=== PATIENT | female | born 1995 | race African-American/Black ===

== ENCOUNTER 2017-03-13 19:52 | Emergency (ER) | payer OTHER | END 2017-03-13 21:59 | disposition home or self-care (01) | LOC: ER 19:52 | DX: N39.0 Urinary tract infection, site not specified (principal); J45.909 Unspecified asthma, uncomplicated; F10.99 Alcohol use, unspecified with unspecified alcohol-induced disorder; Z91.040 Latex allergy status ==

== ENCOUNTER 2018-07-28 10:12 | Emergency (ER) | payer OTHER ==
[~2018-07-28] VITALS: Ht 177.8 cm; Wt 68.5 kg
[~2018-07-28 10:12] MED LIST: BACTRIM DS TAB1 EACH PO; CLEOCIN HCL150 MG PO; FLEXERIL PO; HIBICLENS120 ML TP; HYCET 7.5 MG-3473 ML PO; KEFLEX500 MG PO; MOBIC7.5 MG PO; NAPROSYN500 MG PO; NOHOMEMEDICATIONS; PREDNISONE 20 M20 MG PO; ZYRTEC10 M2 PO
[2018-07-28 10:13] VITALS: BP 129/68
[2018-07-28 10:30] LABS: URINE BILIRUBIN NEGATIVE (Negative); URINE BLOOD NEGATIVE (Negative); URINE CLARITY CLEAR; URINE COLOR YELLOW; URINE GLUCOSE-RANDOM* NEGATIVE (Negative); URINE KETONES NEGATIVE (Negative); URINE LEUKOCYTES-REFLEX NEGATIVE (Negative); URINE NITRITE-REFLEX NEGATIVE (Negative); URINE PROTEIN (DIPSTICK) NEGATIVE (Negative); URINE UROBILINOGEN 0.2 E.U./dl (0.2-1.0)
[2018-07-28] MEDS ORDERED: FLAGYL500 M1 PO (10:59)
== END 2018-07-28 11:08 | disposition home or self-care (01) ==
LOC: ER 10:12
PROVIDERS: Nurse Practitioner Family
DX: N76.0 Acute vaginitis (principal); J45.909 Unspecified asthma, uncomplicated; Z91.040 Latex allergy status

== ENCOUNTER 2018-08-02 17:09 | Emergency (ER) | payer OTHER ==
[~2018-08-02] VITALS: Ht 177.8 cm; Wt 68.5 kg
[~2018-08-02 17:09] MED LIST changes: +FLAGYL500 M1 PO
[2018-08-02 17:29] LABS: URINE BILIRUBIN NEGATIVE (Negative); URINE BLOOD NEGATIVE (Negative); URINE CLARITY CLEAR; URINE COLOR YELLOW; URINE GLUCOSE-RANDOM* NEGATIVE (Negative); URINE KETONES NEGATIVE (Negative); URINE LEUKOCYTES-REFLEX TRACE (Negative); URINE NITRITE-REFLEX NEGATIVE (Negative); URINE PROTEIN (DIPSTICK) NEGATIVE (Negative); URINE SPECIFIC GRAVITY 1.025 (1.005-1.035); URINE UROBILINOGEN 0.2 E.U./dl (0.2-1.0)
[2018-08-02] MEDS ORDERED: DIFLUCAN200 MG PO (18:11)
[2018-08-02 18:36] VITALS: BP 127/81
== END 2018-08-02 18:36 | disposition home or self-care (01) ==
LOC: ER 17:09
PROVIDERS: Physician Assistant
DX: B37.3 Candidiasis of vulva and vagina (principal); N89.8 Other specified noninflammatory disorders of vagina; J45.909 Unspecified asthma, uncomplicated; Z91.040 Latex allergy status

== ENCOUNTER 2018-11-06 17:19 | Emergency (ER) | payer OTHER ==
[~2018-11-06] VITALS: Ht 177.8 cm; Wt 68.0 kg
[2018-11-06 17:19] VITALS: BP 110/66
[~2018-11-06 17:19] MED LIST changes: +DIFLUCAN200 MG PO
[2018-11-06] MEDS ORDERED: MOBIC7.5 MG PO (18:21)
== END 2018-11-06 18:35 | disposition home or self-care (01) ==
LOC: ER 17:19
DX: S93.492A Sprain of other ligament of left ankle, initial encounter (principal); J45.909 Unspecified asthma, uncomplicated; Z91.040 Latex allergy status; X58.XXXA Exposure to other specified factors, initial encounter; Y93.89 Activity, other specified; Y92.89 Other specified places as the place of occurrence of the external cause; Y99.8 Other external cause status

== ENCOUNTER 2019-01-05 22:48 | Emergency (ER) | payer OTHER ==
[~2019-01-05] VITALS: Ht 177.8 cm; Wt 68.5 kg
[2019-01-05 23:33] LABS: URINE BILIRUBIN NEGATIVE (Negative); URINE BLOOD NEGATIVE (Negative); URINE CLARITY CLEAR; URINE COLOR YELLOW; URINE GLUCOSE-RANDOM* NEGATIVE (Negative); URINE KETONES NEGATIVE (Negative); URINE LEUKOCYTES-REFLEX NEGATIVE (Negative); URINE NITRITE-REFLEX NEGATIVE (Negative); URINE PROTEIN (DIPSTICK) NEGATIVE (Negative); URINE SPECIFIC GRAVITY 1.015 (1.005-1.035); URINE UROBILINOGEN 0.2 E.U./dl (0.2-1.0)
[2019-01-06 00:25] VITALS: BP 114/69
== END 2019-01-06 00:29 | disposition home or self-care (01) ==
LOC: ER 22:48
PROVIDERS: Emergency Medicine
DX: R30.0 Dysuria (principal); J45.909 Unspecified asthma, uncomplicated; Z91.040 Latex allergy status

== ENCOUNTER 2021-02-11 09:39 | Emergency (ER) | payer OTHER ==
[~2021-02-11] VITALS: Ht 172.7 cm; Wt 70.8 kg
[2021-02-11 09:41] VITALS: BP 130/76
== END 2021-02-11 10:46 | disposition home or self-care (01) ==
LOC: ER 09:39
DX: J02.8 Acute pharyngitis due to other specified organisms (principal); J45.909 Unspecified asthma, uncomplicated; Z91.040 Latex allergy status; Z20.822 Contact with and (suspected) exposure to COVID-19